=== PATIENT | female | born 1965 | race Caucasian/White ===

== ENCOUNTER → 2017-02-17 | Outpatient (CLI) | payer OTHER ==
[~2017-02-17] MED LIST: ASPIRIN EC81 MG PO; BISOPROLOL-HCT1 EAC2 PO; IMDUR30 MG PO; NITROSTAT0.4 MG SL; PROVENTIL OR V6.7 GM INH; SUMATRIPTAN SU100 MG PO; ULTRAM50 MG PO
--- NOTE | ~2017-02-17 | ENPV ---
Vascular Lower Extremities Arterial Duplex and Lower Arterial Plethysmography Procedure Demographics Patient Name IFEANYI SRINIVASAN Date of Study 02/17/2017 Patient Number [id number] Gender Female Date of 1965 Age 51 Visit Number [id number] Height 55 Weight 130 Number Referring Blanca Annmalihagordy Interpreting Bruno Dewitt MD Physician Physician Physician Ordering Blanca Alejandroosmelgordy Inspector Purchased Parts Physician [employer] Scarlett Middleton, RT,RVT,RDCS Brittany Singh RDCS, RVT Conclusions Summary Ankle brachial index on the right is 1.01 no significant arterial disease at rest. Ankle brachial index on the left is 0.94 no significant arterial disease at rest. The toe brachial index on the right is 0.54 which is abnormal suggesting significant peripheral arterial disease . The toe brachial index on the left is 0.96 which is normal . Procedure Type of Study: Extremities Arteries:Lower Extremities Arterial Duplex, Arterial Duplex Lower Extremity Bilateral, Lower Arterial Plethysmography, Ankle/Brachial Indicies. Appropriate Use Criteria:9 Patient Status:Routine. Study Location:Inpatient Portable. Technical Quality:Adequate visualization. Velocities are measured in cm/s ; Diameters are measured in cm Pressures - Brachial Pressure:Right: 163.Left:153. Post Exercise + +----+ +---------+--------+ + + ! ! !Right ! !Left ! ! ! + +----+ +---------+--------+ + + !Location ! !Pressure !Ratio ! !Pressure !Ratio ! + +----+ +---------+--------+ + + !ADVERTISING MATERIAL DISTRIBUTOR ! !164 !1.01 ! !154 !0.94 ! + +----+ +---------+--------+ + + !DP ! !141 !0.87 ! !142 !0.87 ! + +----+ +---------+--------+ + + !Toe ! !88 !0.54 ! !157 !0.96 ! + +----+ +---------+--------+ + + - Brachial Pressure:Right: 163.Left:151. - YOLANDE:Right: 1.01.Left: 0.94. Velocities are measured in cm/s ; Diameters are measured in cm LE Duplex Measurements + ++-----+ +----+---+ + ! !!Right! !Left! ! ! + ++-----+ +----+---+ + !Location !!PSV !Wave Desc. ! !PSV!Wave Desc. ! + ++-----+ +----+---+ + !Prox BECK !!99 ! ! !116! ! + ++-----+ +----+---+ + !Femoral !!132 ! ! !78 ! ! + ++-----+ +----+---+ + !Prox SFA !!106 ! ! !141! ! + ++-----+ +----+---+ + !Mid SFA !!99 ! ! !105! ! + ++-----+ +----+---+ + !Dist SFA !!92 ! ! !96 ! ! + ++-----+ +----+---+ + !Prox Popliteal !!40 ! ! !56 ! ! + ++-----+ +----+---+ + !Dist Popliteal !!78 ! ! !56 ! ! + ++-----+ +----+---+ + !Prox ADVERTISING MATERIAL DISTRIBUTOR !!62 ! ! !64 ! ! + ++-----+ +----+---+ + !Mid ADVERTISING MATERIAL DISTRIBUTOR !!53 ! ! !54 ! ! + ++-----+ +----+---+ + !Dist ADVERTISING MATERIAL DISTRIBUTOR !!60 ! ! !49 ! ! + ++-----+ +----+---+ + !Prox KRYSTLE !!72 ! ! ! ! ! + ++-----+ +----+---+ + !Mid KRYSTLE !!74 ! ! !51 ! ! + ++-----+ +----+---+ + !Prox Peroneal !!56 ! ! ! ! ! + ++-----+ +----+---+ + !Mid Peroneal !!42 ! ! !56 ! ! + ++-----+ +----+---+ + !Dist Peroneal !!68 ! ! ! ! ! + ++-----+ +----+---+ + Signature dtt: ESDRAS CARR dtd: 02/17/17 1137 Physician Self Edit
--- NOTE | ~2017-02-17 | ESTC ---
Cardiac Perfusion Imaging Demographics Patient Name CRAIG Castellon Gender Female Patient Number [id number] Race Visit Number [id number] Ethnicity [employer] ID Room Number Accession Number [id number] Height 55 inches Date of 1965 Weight 130 pounds Blanca Prieto Interpreting SAMPSON Alfonso Date of study 02/17/2017 Physician Blanca Prieto Supervising /FRANCESCOP Blanca NAIR Technologist Jes Prieto Ordering Physician Stress train control electronic technician Stress ECG Reading Blanca Nurse Johnny Castellon Physician Ida SALGADO The procedure was explained in detail to the patient. Risks, complications and alternative treatments were reviewed. Written consent was obtained. Medications Reviewed with Patient prior to Procedure. Procedure Procedure Type: Nuclear Stress Test:Pharmacological, Cardiolite Stress Test Procedure Start time: 02/17/2017 00:00 Indications: Chest pain. Conclusions Summary Perfusion Images: The overall quality of the study is fair, due to gastrointestinal tracer uptake. Left ventricular cavity is noted to be normal on the stress and rest studies. TID ratio is 1.19. There is no evidence of abnormal lung activity. The right ventricle is not visualized and cannot be assessed. Stress SPECT images demonstrate homogenous tracer distribution throughout the myocardium except for medium size moderate decrease in tracer uptake in the area involving the basal to mid inferoseptal wall with minimal reversibility in the basal segment on rest images. Gated SPECT imaging reveals mild septal hypokinesis. The left ventricular ejection fraction was calculated to be 53%. Impression Patient could not complete Aristeo stress test due to claudication and did not reach target heart rate. Had dyspnea with exercise. Stress test was changed to Lexiscan. ECG portion of stress test is clinically positive for ischemia by diagnostic criteria (with lexiscan). Myocardial perfusion imaging is abnormal. The basal to mid inferoseptal wall mostly matched defect with minimal reversibility is suggestive of infarct with minimal annelise-infarct ischemia. Gated SPECT imaging reveals mild septal hypokinesis. The left ventricular ejection fraction was calculated to be 53%. There are no previous studies for comparison . Clinical correlation is recommended. Stress Protocols Resting ECG sinus bradycardia at 50/min Pre-stress physical exam: Patient assessed by Dr Berger prior to testing. Predicted HR: [address] depression with T wave inversion inferior leads and biphasic T waves on lead V5, V6 Arrhythmias No rhythm abnormality. Symptoms Leg pain with Aristeo stress test Dyspnea with Lexiscan Stress Interpretation Pt was not able to reach target heart rate. Non diagnostic Aristeo stress test. Lexiscan: Stress test is positive for ischemia. Nuclear images are pending In view of leg claudication, will obtain ABIs and peripheral vascular ultrasound Imaging Results Summed scores - Summed stress score: 5 - Summed rest score: 1 - Summed difference score: 4 Stress ejection Ejection fraction:54 % EDV :91 ml ESV :42 ml Stroke volume :49 ml LV mass :117 gr Imaging Protocols Rest Stress Isotope:Tc99m Sestamibi IV Isotope: Tc99m Sestamibi IV Isotope dose:10.3 mCi Isotope dose:31.6 mCi Date:02/17/2017 07:36 Date:02/17/2017 09:50 Technique: SPECT Technique: Gated Supine SPECT Supine Scan Time:45-60 minutes post Scan Time:45-60 minutes post injection injection Procedure Medications - Regadenoson (Lexiscan) 0.4 mg IV over 10-15 sec. I.V. 0.4 mg. Medical History Admission Data Admission date: 02/17/2017 Admission Time: 07:24 Hospital Status: Outpatient. Signatures dtt: IDA BERGER dtd: 02/17/17 [facility] Physician Self Edit
== END | disposition disaster alternative care site (69) ==
LOC: GRAD 07:24
DX: R07.9 Chest pain, unspecified (principal); Z82.49 Family history of ischemic heart disease and other diseases of the circulatory system
CPT/HCPCS: A9500; J2785

== ENCOUNTER 2017-02-24 05:59 | Outpatient (CLI) | payer OTHER ==
[~2017-02-24] VITALS: Ht 165.1 cm; Wt 59.7 kg
--- NOTE | ~2017-02-24 | CATH ---
Cardiac Diagnostic Report Demographics Patient Name CRAIG Castellon Gender Female Date of 1965 Age 51 year(s) Patient Number [id number] Date of Study 02/24/2017 Visit Number [id number] Room Number [id number] [place] [id number] Ht 165.1 cm Wt 59.7 kg Referring Roberto Rhodes I Primary Physician Physician ROMINA Performing Yerra Secondary Physician Physician Ida Diagnostic Blanca Assisting Physician Physician Ida Interventional Physician Talent Director Physician Findings and Conclusions Diagnostic Findings and Conclusion L Main: Distal 20% narrowing LAD: Proximal 30% stenosis L Cx: Ostial 20% stenosis RCA: Dominant, proximal 20-30% stenosis Overall the vessels appear to be of small caliber Diagnostic Recommendations Medical therapy. Procedure Description The patient was brought to the diagnostic cardiac catheterization-EP laboratory in the fasting, non-sedated state. Informed consent was obtained in the written and verbal form after the risks and benefits were explained. The patient had no further questions and agreed to proceed. The planned puncture-incision site(s) were shaved and prepped with ChloraPrep and draped in the usual sterile manner. Conscious sedation, supplemental oxygen, and pain control medications were delivered by a registered nurse under physician guidance. Surface ECG rhythm, blood pressure measurement, and pulse oximetry were monitored throughout the procedure. Arterial access. Radial artery access was attempted; however, wire could not be advanced and hence, access was obtained through femoral artery. The access site was infiltrated with lidocaine. The vessel was entered with the Seldinger technique. A sheath was advanced into the vessel and used for catheter placement. Selective left coronary angiography. A catheter was advanced into the left coronary vessel ostium under Fluoroscopic guidance. Contrast was injected by hand. Images were obtained in multiple projections. Selective right coronary angiography. A catheter was advanced into the right coronary vessel ostium under fluoroscopic guidance. Contrast was injected by hand. Images were obtained in multiple projections. Arterial artery hemostasis was achieved. The patient was transferred to a regular nursing floor via cart accompanied by a nurse. The patient left the laboratory in stable condition. Diagnostic Cath Status: Elective Procedure Procedure Type Diagnostic procedure:Angiography:, Coronary Angios Indications: Chest pain, Shortness of breath and Abnormal Stress Test. The procedure was explained in detail to the patient. Risks, complications and alternative treatments were reviewed. Written consent was obtained. Medications Reviewed with Patient prior to Procedure. Angiographic Findings Dominance: Right Cardiac Arteries and Lesion Findings LMCA: Lesion on LMCA: Ostial.30% stenosis . Comments:Tapering. LAD: Lesion on Prox LAD: Proximal subsection.30% stenosis . LCx: Lesion on Prox CX: Ostial.30% stenosis . RCA: Lesion on Prox RCA: 30% stenosis . Coronary Tree Procedure Data Procedure Date Date: 02/24/2017Start: 08:04 AMEnd: 08:58 AM Entry Locations - Retrograde Percutaneous access was performed through the Right Femoral artery (Primary location). A 6 Fr sheath was inserted. Hemostasis was successfully obtained using Angio-Seal STS PLUS ([place]). Closure Comments: Performed by Dr. Berger.. Procedure Medications Order and Administration + + +-------+------+ !Time !Medication !Dosage !Route ! + + +-------+------+ !02/24/2017 08:01 AM !Fentanyl !25 mcg !I.V. ! + + +-------+------+ !02/24/2017 08:04 AM !Versed !0.5 mg !I.V. ! + + +-------+------+ !02/24/2017 08:08 AM !Versed !0.5 mg !I.V. ! + + +-------+------+ !02/24/2017 08:35 AM !Fentanyl !25 mcg !I.V. ! + + +-------+------+ Devices Used - A5 Fr. BS JL 3.5 Diag. Catheterwas used for:Left coronary angiography. - A5 Fr. BS JR 4 Diag. Catheterwas used for:Right coronary angiography. Contrast Material - Isovue 98460 ml Fluoroscopy Time: Diagnostic: 4:54 minutes. Total: 4:54 minutes. Fluoroscopy Dose: Diagnostic: 235 mGy. Total: 235 mGy. Estimated Blood Loss: 20 ml. Medical History Performed Procedures and Imaging Results - Stress testing with SPECT MPIwas performed. Results were: Positive. Risk/Extent of ischemia was: Intermediate risk. Allergies - Other:(Nickel, wool.). Risk Factors The patient risk factors include:prior CABG;hypertension, chronic lung disease, last creatinine: 0.8 mg/dl, creatinine clearance: 76.65 ml/min and Current/Recent(w/in 1 year) tobacco use. Admission Data Admission Date: 02/24/2017 Admission Time: 05:59 AM Admit Source: Other Admission Medications + +------+------+ + + + + !Medication !Dosage!Times !Last !Last !Administered !Comments ! ! ! !Per !Delivery !Delivery ! ! ! ! ! !Day !Date !Time ! ! ! + +------+------+ + + + + !Aspirin ! ! ! ! !Yes ! ! !(any) ! ! ! ! ! ! ! + +------+------+ + + + + !Beta ! ! ! ! !Yes ! ! !Nay ! ! ! ! ! ! ! !(any) ! ! ! ! ! ! ! + +------+------+ + + + + Clinical Evaluation Leading to Procedure - The patient's CAD presentation was assessed as: Stable angina. - The patient's anginal syndrome during the past two weeks was assessed as: Class II according to the [employer] Cardiovascular Society Classification System (CCS). Anti-anginal medications were prescribed during the past two weeks. The medication is: Beta Blockers. Hemodynamics Condition: Rest O2 Consumption: Estimated: 151.74Heart Rate: 55 bpm Pressures (mmHg) +-----+ + !Site !Pressure ! +-----+ + !AO !117/61 (83) ! +-----+ + !AO !113/59 (81) ! +-----+ + !AO !121/68 (89) ! +-----+ + Shunts Oxygen Values O2 Capacity 190.4 O2 Consumption 151.74 Signatures dtt: IDA BERGER dtd: 02/24/17 08 Physician Self Edit
[~2017-02-24 05:59] MED LIST changes: -IMDUR30 MG PO
[2017-02-24 06:32] LABS: BASOPHIL % 0.4 %; EOSINOPHIL # 0.1 K/uL (0.0-0.5); EOSINOPHIL % 1.3 %; HEMATOCRIT 42.1 % (33.0-46.0); IMMATURE GRANULOCYTE % 0.4 %; LYMPHOCYTE # 3.1 K/uL (0.8-4.0); LYMPHOCYTE % 29.8 %; MCH 30.4 pg (27.0-34.0); MCHC 33.3 gm/dL (32.0-36.5); MCV 91.5 fl (83.0-98.0); MONOCYTE # 1.1 K/uL (0.0-1.0); MONOCYTE % 10.9 %; MPV 10.4 fl (9.4-12.4); NEUTROPHIL % 57.2 %; NRBC % 0 /100WBC (0-0.00); PLATELET COUNT 202 K/uL (150-450); RDW-CV 13.5 % (11.9-14.6); WBC 10.4 K/uL (4.0-11.0)
[2017-02-24 06:47] LABS: INR - (THERAPEUTIC) 1.01 (0.92-1.07); PROTIME 10.6 SECONDS (9.8-11.4); PTT 27 SECONDS (25-32)
[2017-02-24 06:52] LABS: ALBUMIN 3.7 gm/dL (3.5-5.0); ANION GAP 10.9 (10.0-19.0); CALCIUM 8.9 mg/dL (8.5-10.5); CREATININE 0.8 mg/dL (0.5-1.1); POTASSIUM 3.9 mMol/L (3.7-5.1); TOTAL BILIRUBIN 0.5 mg/dL (0.0-1.5); TOTAL PROTEIN 7.2 g/dL (6.0-8.4)
[2017-02-24] MEDS ORDERED: IMDUR30 MG PO (09:56)
== END 2017-02-24 12:30 | disposition disaster alternative care site (69) ==
LOC: GPCU 05:59 → GCAT 05:59 → GPCU 06:00 → GPOC 06:00 → GCAT 12:30
PROVIDERS: Internal Medicine Interventional Cardiology
PROC: 4A023N7 Measurement of Cardiac Sampling and Pressure, Left Heart, Percutaneous Approach (ICD-10-PCS; principal; 2017-02-24)
PROC: B216YZZ Fluoroscopy of Right and Left Heart using Other Contrast (ICD-10-PCS; 2017-02-24)
DX: R94.39 Abnormal result of other cardiovascular function study (principal); R00.1 Bradycardia, unspecified
CPT/HCPCS: C1760; J1644; J2001; J2250; J3010; J7030